=== PATIENT | female | born 1980 ===

== ENCOUNTER 2018-02-12 21:12 | Emergency (ER) | payer SELFPAY ==
[2018-02-12 21:12] VITALS: BMI 33.0
[2018-02-12 21:37] VITALS: RESP 18
[2018-02-12] MEDS ORDERED: Sodium Chloride 0.9% 1,000 ML IV STA (21:50)
[2018-02-12 22:25] LABS: BASO # 0.1 K/uL (0.0-0.2); BASO % 0.6 % (0.0-2.0); EOS # 0.1 K/uL (0.0-0.7); HEMOGLOBIN 13.6 g/dL (12.0-16.0); LYMPH # 3.5 K/uL (1.0-4.3); LYMPH % 29.8 % (20.0-40.0); MEAN CELL VOLUME 83.8 fl (81.0-99.0); MEAN CORPUSCULAR HGB CONC 33.3 g/dL (33.0-37.0); MEAN PLATELET VOLUME 8.1 fl (7.2-11.7); MONO # 0.9 K/uL (0.0-0.8); NEUT # 7.1 K/uL (1.8-7.0); NEUT % 60.6 % (50.0-75.0); RBC 4.86 Mil/uL (3.80-5.20); RED CELL DISTRIBUTION WIDTH 13.7 % (11.5-14.5); WHITE BLOOD COUNT 11.7 K/uL (4.8-10.8)
--- NOTE | 2018-02-12 22:26 | ED PDOC ---
HPI: Female Pain Chief Complaint (Provider): Vaginal Bleeding History Per: Patient History/Exam Limitations: no limitations Onset/Duration Of Symptoms: Days (x1 month), Worse Since (x2 days) Current Symptoms Are (Timing): Still Present Additional Complaint(s): 37 year old female presents to the ED for evaluation of vaginal bleeding for the past month, worsening the past two days when she developed associated 8/10 a bdominal and back pain. She states throughout the day today she had to change her pad/tampon every hour. Reports being on a course of progesterone for 17 days, completing it 2 days ago with no relief of symptoms. She notes she is also scheduled for a clovira injection on 02/15 at [facility], but the persistent symptoms prompted her visit. Otherwise, (-) other complaints. 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 <Rose Maddox - Last Filed: 02/13/18 00:44> <Olga Kraft - Last Filed: 02/15/18 09:35> Time Seen by Provider: 02/12/18 21:40 Chief Complaint (Nursing): Female Genitourinary Supervising Attending Note - Attestation: I have personally seen and examined this patient.: No I have reviewed all pertinent clinical information, including history, physical exam and plan: Yes <Olga Kraft - Last Filed: 02/15/18 09:35> Past Medical History Reviewed: Historical Data, Nursing Documentation, Vital Signs Vital Signs: Last Vital Signs Temp 98.8 F 02/12/18 21:32 Pulse 73 02/12/18 21:32 Resp 18 02/12/18 21:32 BP 145/92 H 02/12/18 21:32 Pulse Ox 100 02/12/18 21:32 - Medical History PMH: Hypothyroidism Other PMH: ovarian cysts; myomas - Surgical History Surgical History: No Surg Hx - Family History Family History: States: Unknown Family Hx - Social History Current smoker - smoking cessation education provided: No Alcohol: None Drugs: Denies - Immunization History Hx Tetanus Toxoid Vaccination: No Hx Influenza Vaccination: No Hx Pneumococcal Vaccination: No <Rose Maddox - Last Filed: 02/13/18 00:44> Vital Signs: Last Vital Signs Temp 98.7 F 02/13/18 01:00 Pulse 72 02/13/18 01:00 Resp 18 02/13/18 01:00 BP 124/73 02/13/18 01:00 Pulse Ox 98 02/13/18 01:00 <Olga Kraft - Last Filed: 02/15/18 09:35> - Home Medications Home Medications: Ambulatory Orders Medication Instructions Recorded RX: Levothyroxine [Synthroid] 1 tab PO DAILY 08/17/17 Cyclobenzaprine [Cyclobenzaprine 10 mg PO HS #8 tab 11/28/17 HCl] Ibuprofen [Motrin] 600 mg PO TID #30 tab 11/28/17 RX: Naproxen 375 mg PO BID PRN #20 tablet 02/11/18 - Allergies Allergies/Adverse Reactions: Allergies Allergy/AdvReac Type Severity Reaction Status Date / Time No Known Allergies Allergy Verified 02/12/18 21:37 Review of Systems ROS Statement: Except As Marked, All Systems Reviewed And Found Negative Gastrointestinal: Positive for: Abdominal Pain (12/09) Genitourinary Female: Positive for: Vaginal Bleeding Musculoskeletal: Positive for: Back Pain (12/09) <Rose Maddox Delon - Last Filed: 02/13/18 00:44> Physical Exam - Reviewed Nursing Documentation Reviewed: Yes Vital Signs Reviewed: Yes - Physical Exam Comments: GENERAL APPEARANCE: Patient is awake, alert, oriented x 3, in no acute distress. SKIN: Warm, dry; (-) cyanosis. EYES: (-) conjunctival pallor. ENMT: Mucous membranes moist. Airway patent: (-) stridor. Pharynx: (-) swelling, (-) erythema. NECK: (-) tenderness, (-) stiffness, (-) lymphadenopathy. CHEST AND RESPIRATORY: (-) wheezing; (-) rales, (-) rhonchi, (-) rub; breath sounds equal bilaterally. HEART AND CARDIOVASCULAR: (-) irregularity; (-) murmur, (-) gallop. ABDOMEN AND GI: Soft; (+) mild supra pubic and LLQ tenderness. BACK: (+) bilateral para lumbar tenderness. (-) vertebral tenderness, (-) bilateral CVA tenderness. EXTREMITIES: (-) deformity, (-) edema. NEURO AND PSYCH: Mental status as above; (-) focal findings. PELVIC: Normal external genitalia; (-) vesicles, (-) ulcers. (-)vaginal discharge; (+) active bleeding from cervix (+) large amount of blood in vaginal canal (-) pain on cervical motion. Uterus normal. No adnexal mass or tenderness. 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 <Rose Maddox - Last Filed: 02/13/18 00:44> - Laboratory Results Result Diagrams: 02/12/18 22:11 02/12/18 22:11 Urine POC: Negative Urine dip results: Positive for: Blood (large). Negative for: Leukocyte Esterase, Nitrate, Ketones, Glucose, Bilirubin, Protein - ECG O2 Sat by Pulse Oximetry: 100 (RA) Pulse Ox Interpretation: Normal <Rose Maddox - Last Filed: 02/13/18 00:44> - Laboratory Results Result Diagrams: 02/12/18 22:11 02/12/18 22:11 <Kraft,Olga Carmona - Last Filed: 02/15/18 09:35> Medical Decision Making Medical Decision Making: Initial Impression: vaginal bleeding Time: 2149 Initial Plan: --Transvaginal US --Urinalysis --Urine culture --Tylenol 975mg PO --Normal saline IV --CBC with differential --U-dip --U-preg --CMP --Type and screen 5 Udip reviewed: (+) blood. Upreg: negative 2240 Labs reviewed and grossly unremarkable. H&H stable. 0045 TV U/S: Posterior fundal submucosal fibroid. Abutment/displacement of the adjacent endometrium/endometrial cavity. Electronically signed on Feb 13, 2018 12:40:05 AM EDT by Lata Peralta M.D. Consult placed to OBGYN construction laborer, Dr Merino. [address] Merino, who states that patient requires no emergent intervention at this time and can follow up outpatient as planned with the clinic on 02/14/18. Patient supplied with U/S report to bring to appointment. Repeaet BP: __ On re-evaluation, patient offers no additional complaints. On exam, patient remains AAOx3, in no acute distress. Lungs clear to auscultation, cardiac RRR, abdomen soft, non-tender, repeat neuro exam shows no focal findings. VSS, stable for discharge. Lab/Diagnostic results d/w the patient in great detail. Diagnosis of uterine fibroid, vaginal bleeding d/w the patient. Based on history, exam and diagnostic results, plan will be for outpatient follow up as scheduled with OBGYN. Patient instructed to follow-up with pmd / referral provided / the clinic in 1- 2 days without fail. Return to the emergency room at any time for any new or worsening symptoms. Patient states she fully agrees with and understands dischar ge instructions. States that she agrees with the plan and disposition. Verbalized and repeated discharge instructions and plan. I have given the patient opportunity to ask any additional questions. -- Scribe Attestation: Documented by Dalia Rodarte, acting as a scribe for Rose Maddox PA-C. Provider Scribe Attestation: All medical record entries made by the Scribe were at my direction and perso gm dictated by me. I have reviewed the chart and agree that the record accurately reflects my personal performance of the history, physical exam, medical decision making, and the department course for this patient. I have also personally directed, reviewed, and agree with the discharge instructions and disposition. <Rose Maddox - Last Filed: 02/13/18 00:44> Disposition - Patient ED Disposition Is Patient to be Admitted: No Counseled Patient/Family Regarding: Studies Performed, Diagnosis, Need For Followup - Disposition Disposition: Routine/Home Disposition Time: 00:55 - POA Present On Arrival: None <Rose Maddox - Last Filed: 02/13/18 00:44> <Olga Kraft - Last Filed: 02/15/18 09:35> - Clinical Impression Clinical Impression: Vaginal bleeding, Uterine fibroid - Disposition [facility]errals: [facility]Outside[facility] [Outside] Condition: FAIR Additional Instructions: La atencin mdica de emergencia que recibi hoy se dirigi hacia los sntomas agudos de presentacin. Si le recetaron algn medicamento, llnelo y adminstrelo segn las indicaciones. Los sntomas pueden tardar varios fuentes en resolverse. Regrese al Departamento de Emergencias en cualquier momento si los sntomas empeoran, no mejoran o si surgen otros problemas. Comunquese con bagley mdico dentro de 2 fuentes para donta nueva evaluacin y robert un seguimiento o llame a franco de los mdicos / clnicas a los que marie sido referido y que figuran en el formulario de Informacin de visita al paciente que se incluye en bagley paquete de evelyne. Lleve todos los documentos que le entregaron al momento del evelyne junto con cualquier medicamento a bagley visita de seguimiento. Nuestro tratamiento no puede reemplazar la atencin mdica continua por parte de un proveedor de atencin primaria (PCP) fuera del departamento de emergencias. Instructions: Uterine Fibroids, Absent or Irregular Periods, Heavy Periods Forms: [employer] (Georgian) Print Language: LATVIAN Results - Lab Results Lab Results: 02/12/18 02/12/18 02/12/18 22:11 22:11 22:11 WBC RBC Hgb Hct MCV MCH MCHC RDW Plt Count MPV Neut % (Auto) Lymph % (Auto) Coal % (Auto) Eos % (Auto) Baso % (Auto) Neut # (Auto) Lymph # (Auto) Coal # (Auto) Eos # (Auto) Baso # (Auto) Sodium 140 Potassium 4.1 Chloride 111 H Carbon Dioxide 22 Anion Gap 11 BUN 10 Creatinine 0.6 L Est GFR ( Amer) > 60 Est GFR (Non-Af Amer) > 60 Random Glucose 96 Calcium 9.3 Total Bilirubin 0.6 AST 24 ALT 40 Alkaline Phosphatase 75 Total Protein 7.4 Albumin 3.9 Globulin 3.5 Albumin/Globulin Ratio 1.1 Urine Color Yellow Urine Clarity Cloudy Urine pH 6.0 Ur Specific Chamber[place] 1.015 Urine Protein 30 Urine Glucose (UA) Neg Urine Ketones Negative Urine Blood Large Urine Nitrate Negative Urine Bilirubin Negative Urine Urobilinogen 0.2-1.0 Ur Leukocyte Esterase Neg Urine RBC (Auto) 1601 H Urine Microscopic WBC < 1 Ur Squamous Epith Cells < 1 Blood Type O POSITIVE Antibody Screen Negative BBK History Checked No verified bt 02/12/18 22:11 WBC 11.7 H RBC 4.86 Hgb 13.6 Hct 40.8 MCV 83.8 MCH 28.0 MCHC 33.3 RDW 13.7 Plt Count 323 MPV 8.1 Neut % (Auto) 60.6 Lymph % (Auto) 29.8 Coal % (Auto) 8.0 Eos % (Auto) 1.0 Baso % (Auto) 0.6 Neut # (Auto) 7.1 H Lymph # (Auto) 3.5 Coal # (Auto) 0.9 H Eos # (Auto) 0.1 Baso # (Auto) 0.1 Sodium Potassium Chloride Carbon Dioxide Anion Gap BUN Creatinine Est GFR ( Amer) Est GFR (Non-Af Amer) Random Glucose Calcium Total Bilirubin AST ALT Alkaline Phosphatase Total Protein Albumin Globulin Albumin/Globulin Ratio Urine Color Urine Clarity Urine pH Ur Specific Chamber[place] Urine Protein Urine Glucose (UA) Urine Ketones Urine Blood Urine Nitrate Urine Bilirubin Urine Urobilinogen Ur Leukocyte Esterase Urine RBC (Auto) Urine Microscopic WBC Ur Squamous Epith Cells Blood Type Antibody Screen BBK History Checked <Rose Maddox - Last Filed: 02/13/18 00:44> - Lab Results Lab Results: 02/12/18 02/12/18 02/12/18 22:11 22:11 22:11 WBC RBC Hgb Hct MCV MCH MCHC RDW Plt Count MPV Neut % (Auto) Lymph % (Auto) Coal % (Auto) Eos % (Auto) Baso % (Auto) Neut # (Auto) Lymph # (Auto) Coal # (Auto) Eos # (Auto) Baso # (Auto) Sodium 140 Potassium 4.1 Chloride 111 H Carbon Dioxide 22 Anion Gap 11 BUN 10 Creatinine 0.6 L Est GFR ( Amer) > 60 Est GFR (Non-Af Amer) > 60 Random Glucose 96 Calcium 9.3 Total Bilirubin 0.6 AST 24 ALT 40 Alkaline Phosphatase 75 Total Protein 7.4 Albumin 3.9 Globulin 3.5 Albumin/Globulin Ratio 1.1 Urine Color Yellow Urine Clarity Cloudy Urine pH 6.0 Ur Specific Chamber[place] 1.015 Urine Protein 30 Urine Glucose (UA) Neg Urine Ketones Negative Urine Blood Large Urine Nitrate Negative Urine Bilirubin Negative Urine Urobilinogen 0.2-1.0 Ur Leukocyte Esterase Neg Urine RBC (Auto) 1601 H Urine Microscopic WBC < 1 Ur Squamous Epith Cells < 1 Blood Type O POSITIVE Antibody Screen Negative BBK History Checked No verified bt 02/12/18 22:11 WBC 11.7 H RBC 4.86 Hgb 13.6 Hct 40.8 MCV 83.8 MCH 28.0 MCHC 33.3 RDW 13.7 Plt Count 323 MPV 8.1 Neut % (Auto) 60.6 Lymph % (Auto) 29.8 Coal % (Auto) 8.0 Eos % (Auto) 1.0 Baso % (Auto) 0.6 Neut # (Auto) 7.1 H Lymph # (Auto) 3.5 Coal # (Auto) 0.9 H Eos # (Auto) 0.1 Baso # (Auto) 0.1 Sodium Potassium Chloride Carbon Dioxide Anion Gap BUN Creatinine Est GFR ( Amer) Est GFR (Non-Af Amer) Random Glucose Calcium Total Bilirubin AST ALT Alkaline Phosphatase Total Protein Albumin Globulin Albumin/Globulin Ratio Urine Color Urine Clarity Urine pH Ur Specific Chamber[place] Urine Protein Urine Glucose (UA) Urine Ketones Urine Blood Urine Nitrate Urine Bilirubin Urine Urobilinogen Ur Leukocyte Esterase Urine RBC (Auto) Urine Microscopic WBC Ur Squamous Epith Cells Blood Type Antibody Screen BBK History Checked <Olga Kraft - Last Filed: 02/15/18 09:35>
[2018-02-12 22:35] LABS: ALB/GLOB RATIO 1.1 (1.0-2.1); ALBUMIN 3.9 g/dL (3.5-5.0); ALT/SGPT 40 U/L (9-52); AST/SGOT 24 U/L (14-36); BLOOD UREA NITROGEN 10 mg/dl (7-17); CALCIUM 9.3 mg/dL (8.4-10.2); GFR NON-AFRICAN AMERICAN > 60
[2018-02-12 22:41] LABS: SQUAMOUS EPITHIAL < 1 /hpf (0-5); URINE BILIRUBIN NEGATIVE (NEGATIVE); URINE BLOOD LARGE (NEGATIVE); URINE CLARITY CLOUDY (Clear); URINE COLOR YELLOW (YELLOW); URINE GLUCOSE (UA) NEG (Normal); URINE LEUKOCYTE ESTERASE NEG Leu/uL (Negative); URINE PROTEIN 30 mg/dL (NEGATIVE); URINE UROBILINOGEN 0.2-1.0 mg/dL (0.2-1.0)
[2018-02-13 04:39] VITALS: BP 124/73; PULSE 72; TEMP 98.7; O2SAT 98
--- NOTE | 2018-02-13 11:42 | US ---
Date of service: 02/12/2018 HISTORY: Vaginal bleeding, history of myoma and ovarian cysts. LMP 01/09/2018. Irregular cycles. COMPARISON: None available. TECHNIQUE: Transvaginal only. Real -time technique with 2D, duplex and color Doppler FINDINGS: UTERUS: Measures 5.0 x 5.8 x 8.2 cm. Normal in size and appearance. Location of fibroid and size: Midline posterior submucosal 3.1 x 4.3 x 3.9 cm ENDOMETRIUM: Measures 11.8 mm in diameter. Unremarkable. CERVIX: No cervical abnormality identified. RIGHT OVARY: Measures 2.1 x 1.6 x 2.8 cm. No solid mass. Normal flow. Multiple subcentimeter follicles. LEFT OVARY: Measures 1.3 x 2 x 2.5 cm. No solid mass. Normal flow. Multiple subcentimeter follicles. FREE FLUID: No significant free fluid noted. OTHER FINDINGS: None. IMPRESSION: Solitary fibroid described above. Concordant results (preliminary interpretation) provided by [employer]. Procedure Completed: 00:00 Preliminary Report: Dictated and Authenticated: 00:40. Final Interpretation: 11:38.
== END 2018-02-13 01:10 | disposition home or self-care (01) ==
LOC: H.ER 21:12
DX: D25.0 Submucous leiomyoma of uterus (principal); E03.9 Hypothyroidism, unspecified
CPT/HCPCS: 76830; 80053; 81003; 81025; 85025; 86850; 86900; 87086; 99285; J7030

== ENCOUNTER 2018-05-05 21:26 | Emergency (ER) | payer SELFPAY ==
[2018-05-05 21:26] VITALS: BMI 33.0
[2018-05-05 22:15] VITALS: RESP 18; O2SAT 100
[2018-05-05] MEDS ORDERED: Sodium Chloride 0.9% 1,000 ML IV STA (22:27)
--- NOTE | 2018-05-05 22:45 | ED PDOC ---
HPI: Female Pain Time Seen by Provider: 05/05/18 22:14 Chief Complaint (Nursing): Female Genitourinary Chief Complaint (Provider): Vaginal Bleeding History Per: Patient History/Exam Limitations: no limitations Onset/Duration Of Symptoms: Days (x6 weeks) Current Symptoms Are (Timing): Still Present Additional Complaint(s): Patient is a 37 year old female with a history of uterine fibroids who presents for vaginal bleeding ongoing x6 weeks. Patient reports that on 04/13/18 a biopsy (colposcopy) was done by her OBGYN ( Dr Patricia) and that she started bleeding a week prior to that examination. Patient reports she has an upcoming appt with the OBGYN on 05/11/17 for the results. Patient reports that due to continued bleeding, which increased today, she called her OBGYN today who prescribed Provera 10mg tablets, which she has taken two doses of thus far. Patient reports her OBGYN directed her to the ED to get her hemoglobin level checked due to persistent bleeding. Patient denies abdominal pain, fever, urinary symptoms, cough, SOB, vaginal discharge, chest pain, N/V/D, dizziness, headache, syncope. Patient also notes she underwent an endometrial biopsy in 01/2018 as well. PMD: Harshad LMP: unknown due to persistent vaginal bleeding. Past Medical History Reviewed: Historical Data, Nursing Documentation, Vital Signs Vital Signs: Last Vital Signs Temp 98 F 05/05/18 22:12 Pulse 84 05/05/18 22:12 Resp 18 05/05/18 22:12 BP 109/70 05/05/18 22:12 Pulse Ox 100 05/05/18 22:12 - Medical History PMH: Diabetes, Hypothyroidism Other PMH: Uterine Fibroids - Surgical History Other surgeries: Endometrial/Cervical biopsy - Family History Family History: States: Unknown Family Hx - Living Arrangements Living Arrangements: With Family - Home Medications Home Medications: Ambulatory Orders Medication Instructions Recorded Levothyroxine [Synthroid] 1 tab PO DAILY 08/17/17 Ibuprofen [Motrin Tab] 600 mg PO TID PRN #20 tab 04/30/18 MedroxyPROGESTERone [Provera] 10 mg PO DAILY 04/30/18 - Allergies Allergies/Adverse Reactions: Allergies Allergy/AdvReac Type Severity Reaction Status Date / Time No Known Allergies Allergy Verified 05/05/18 22:12 Review of Systems ROS Statement: Except As Marked, All Systems Reviewed And Found Negative Genitourinary Female: Positive for: Vaginal Bleeding (>6 weeks) Physical Exam - Reviewed Nursing Documentation Reviewed: Yes Vital Signs Reviewed: Yes - Physical Exam Appears: Positive for: Well, Non-toxic, No Acute Distress Head Exam: Positive for: ATRAUMATIC, NORMOCEPHALIC Skin: Positive for: Normal Color, Warm, Dry Eye Exam: Positive for: Normal appearance ENT: Positive for: Other (Mucus membranes moist. Airway patent, (-) stridor.) Neck: Positive for: Painless ROM, Supple Cardiovascular/Chest: Positive for: Regular Rate, Rhythm Respiratory: Positive for: Normal Breath Sounds Gastrointestinal/Abdominal: Positive for: Soft. Negative for: Tenderness, Mass, Distended, Guarding Back: Negative for: L CVA Tenderness, R CVA Tenderness, Vertebral Tenderness Extremity: Positive for: Normal ROM. Negative for: Deformity Neurologic/Psych: Positive for: Alert, Oriented (x3), Gait (steady in ED), Other (Speech: clear.). Negative for: Aphasia, Facial Droop - Laboratory Results Urine POC: Negative - ECG O2 Sat by Pulse Oximetry: 100 (RA) Pulse Ox Interpretation: Normal Medical Decision Making Medical Decision Makin Initial Impression: vaginal bleeding, likely secondary to uterine fibroids Plan: -IV -IVF -CBC -CMP -Type and Screen -Transvaginal U/S -U/A -Upreg -Toradol 30mg IVP 2310 Patient in U/S. 0000 Case endorsed to Luisa Bui PA-C pending U/S results, lab results, re- evaluation/further disposition. Disposition - Clinical Impression Clinical Impression: Vaginal bleeding - Patient ED Disposition Is Patient to be Admitted: Transfer of Care (Case endorsed to Luisa Bui PA-C pending U/S results, lab results, re-evaluation/further disposition.) - Disposition Disposition: Transfer of Care (Case endorsed to Luisa Bui PA-C pending U/S results, lab results, re-evaluation/further disposition.) Disposition Time: 00:00 Condition: FAIR - POA Present On Arrival: None
[2018-05-05 23:52] LABS: SQUAMOUS EPITHIAL 2 /hpf (0-5); URINE BILIRUBIN NEGATIVE (NEGATIVE); URINE BLOOD MODERATE (NEGATIVE); URINE CLARITY CLEAR (Clear); URINE COLOR YELLOW (YELLOW); URINE GLUCOSE (UA) NEG (NEGATIVE); URINE LEUKOCYTE ESTERASE NEG Leu/uL (Negative); URINE PROTEIN NEGATIVE (NEGATIVE); URINE UROBILINOGEN 0.2-1.0 mg/dL (0.2-1.0)
[2018-05-05 23:53] LABS: BASO % 0.4 % (0.0-2.0); EOS # 0.2 K/uL (0.0-0.7); EOS % 1.9 % (0.0-4.0); HEMOGLOBIN 10.3 g/dL (12.0-16.0); LYMPH # 3.6 K/uL (1.0-4.3); LYMPH % 34.1 % (20.0-40.0); MEAN CELL VOLUME 74.4 fl (81.0-99.0); MEAN CORPUSCULAR HEMOGLOBIN 24.1 pg (27.0-31.0); MEAN CORPUSCULAR HGB CONC 32.4 g/dL (33.0-37.0); MONO % 9.7 % (0.0-10.0); NEUT # 5.6 K/uL (1.8-7.0); NEUT % 53.9 % (50.0-75.0); NRBC % 0.1 % (0.0-0.0); RBC 4.27 Mil/uL (3.80-5.20); RED CELL DISTRIBUTION WIDTH 15.1 % (11.5-14.5); WHITE BLOOD COUNT 10.5 K/uL (4.8-10.8)
[2018-05-06] LABS: ALB/GLOB RATIO 1.3 (1.0-2.1); ALT/SGPT 23 U/L (9-52); AST/SGOT 21 U/L (14-36); BLOOD UREA NITROGEN 13 mg/dl (7-17); CALCIUM 9.1 mg/dL (8.4-10.2); GFR NON-AFRICAN AMERICAN > 60
--- NOTE | 2018-05-06 00:30 | ED PDOC ---
- Laboratory Results Result Diagrams: 05/05/18 23:00 05/05/18 23:00 Urine POC: Negative - ECG O2 Sat by Pulse Oximetry: 100 (RA) - Progress ED Course And Treament: Case endorsed to va underwriter from [facility] pending labs, u/s Date of service: 05/05/2018 History Vaginal bleeding. History of fibroid. Comparison None available. Technique Pelvic transvaginal ultrasound. Findings Uterus Measures 9.1 x 4.6 x 5.2 cm. Normal in size and appearance. Mid uterine fibroid measuring 4.2 x 3.1 x 3.4 cm. Endometrium Measures 0.6 mm in diameter. Unremarkable. Cervix No cervical abnormality identified. Right ovary Measures 1.4 x 1.2 x 1.8 cm. No solid mass. Normal flow. Left ovary Measures 2.7 x 1.5 x 2.6 cm. No solid mass. Normal flow. Free fluid No significant free fluid noted. Other Findings None. Impression Mid uterine fibroid. Otherwise negative Patient educated on findings, discharged with instructions to follow up with [facility] as scheduled Advised OTC iron supplement Return precautions given Disposition - Clinical Impression Clinical Impression: Vaginal bleeding, Uterine fibroid - POA Present On Arrival: None - Disposition Disposition: Routine/Home Disposition Time: 00:30 Condition: STABLE Instructions: Uterine Fibroids Forms: [employer] (Ukrainian) Print Language: SINHALA
[2018-05-06 05:13] VITALS: BP 116/72; PULSE 88; TEMP 98.3
--- NOTE | 2018-05-06 10:01 | US ---
Date of service: 05/05/2018 PROCEDURE: HISTORY: vag bleeding, hx of fibroids COMPARISON: TECHNIQUE: FINDINGS: Enlarged leiomyomatous uterus with a mid fundal myoma measuring 4.2 centimeters. 6 millimeter endometrium. Ovaries are within normal limits. IMPRESSION: Fundal leiomyoma.
== END 2018-05-06 00:50 | disposition home or self-care (01) ==
LOC: H.ER 21:26
DX: N93.9 Abnormal uterine and vaginal bleeding, unspecified (principal); D25.9 Leiomyoma of uterus, unspecified; E11.9 Type 2 diabetes mellitus without complications; E03.9 Hypothyroidism, unspecified
CPT/HCPCS: 76830; 80053; 81003; 81025; 85025; 86850; 86900; 96361; 96374; 99284; J1885; J7030

== ENCOUNTER 2018-05-24 11:51 | Emergency (ER) | payer SELFPAY ==
[2018-05-24 12:04] VITALS: BMI 27.6
[2018-05-24 12:05] VITALS: O2SAT 99
[2018-05-24] MEDS ORDERED: Sodium Chloride 0.9% 1,000 ML IV SCH (13:45)
--- NOTE | 2018-05-24 13:52 | ED PDOC ---
HPI: Female Pain History Per: Patient Onset/Duration Of Symptoms: Days Current Symptoms Are (Timing): Still Present Severity: Mild Additional Complaint(s): Pt. with a history of uterine fibroids and DUB reports persistent daily mild to moderate vaginal bleeding for almost one month. Pt. saw her hand worker Dr. Bryan 05/05/18 and was started on provera (10mg tid) which shes been taking but bleeding continues. Pt. denies lightheadedness, dizziness, cp, sob. <Masha Lowe - Last Filed: 05/24/18 13:50> <Olga Kraft - Last Filed: 05/24/18 15:17> Time Seen by Provider: 05/24/18 12:19 Chief Complaint (Nursing): Female Genitourinary Past Medical History Reviewed: Historical Data, Nursing Documentation, Vital Signs Vital Signs: Last Vital Signs Temp 98.4 F 05/24/18 12:04 Pulse 73 05/24/18 12:04 Resp 20 05/24/18 12:04 BP 107/65 05/24/18 12:04 Pulse Ox 99 05/24/18 12:04 - Medical History PMH: No Chronic Diseases, Diabetes, Hypothyroidism - Surgical History Surgical History: No Surg Hx - Family History Family History: States: Unknown Family Hx - Immunization History Hx Tetanus Toxoid Vaccination: No Hx Influenza Vaccination: No Hx Pneumococcal Vaccination: No <Masha Lowe - Last Filed: 05/24/18 13:50> Vital Signs: Last Vital Signs Temp 98.4 F 05/24/18 12:04 Pulse 73 05/24/18 12:04 Resp 20 05/24/18 12:04 BP 107/65 05/24/18 12:04 Pulse Ox 99 05/24/18 13:53 <Olga Kraft - Last Filed: 05/24/18 15:17> - Home Medications Home Medications: Ambulatory Orders Medication Instructions Recorded Levothyroxine [Synthroid] 1 tab PO DAILY 08/17/17 Ibuprofen [Motrin Tab] 600 mg PO TID PRN #20 tab 04/30/18 MedroxyPROGESTERone [Provera] 10 mg PO DAILY 04/30/18 Ferrous Sulfate [Feosol] 325 mg PO TID #21 tab 05/24/18 - Allergies Allergies/Adverse Reactions: Allergies Allergy/AdvReac Type Severity Reaction Status Date / Time No Known Allergies Allergy Verified 05/24/18 12:34 Physical Exam - Physical Exam Appears: Positive for: Well, Non-toxic Head Exam: Positive for: ATRAUMATIC Skin: Positive for: Normal Color, Dry Eye Exam: Positive for: Normal appearance Cardiovascular/Chest: Positive for: Regular Rate, Rhythm. Negative for: Tachycardia Respiratory: Positive for: Normal Breath Sounds Gastrointestinal/Abdominal: Positive for: Normal Exam, Soft. Negative for: Tenderness Pelvic Exam: Positive for: No Cerv. Motion Tender, No Masses, Active Bleeding (Mild bleeding from closed cervical os. ) <Masha Lowe - Last Filed: 05/24/18 13:50> - ECG O2 Sat by Pulse Oximetry: 99 <Masha Lowe - Last Filed: 05/24/18 13:50> - Laboratory Results Result Diagrams: 05/24/18 14:29 05/24/18 14:29 <Olga Kraft - Last Filed: 05/24/18 15:17> Medical Decision Making Medical Decision Makin:[address] Bryan, recommends increasing Provera to tid again, follow-up in office on Tuesday (05/29/18) @ 10 AM. Discharge instructions explained to patient using bed control specialist, expresses verbal understanding. <Olga Kraft - Last Filed: 05/24/18 15:17> Disposition <Masha Lowe - Last Filed: 05/24/18 13:50> - Disposition Disposition: Routine/Home Disposition Time: 15:14 <Olga Kraft - Last Filed: 05/24/18 15:17> - Clinical Impression Clinical Impression: Excessive vaginal bleeding - Disposition Referrals: Sim Perdomo MD [Staff Provider] - Condition: STABLE Additional Instructions: MANINDER PROVERA FADY VECES A JAMILAH. Prescriptions: Ferrous Sulfate [Feosol] 325 mg PO TID #21 tab Instructions: Heavy Periods Forms: [employer] (Indonesian) Print Language: ICELANDIC
--- NOTE | 2018-05-24 14:24 | ED PDOC ---
- ECG O2 Sat by Pulse Oximetry: 99 (RA) Pulse Ox Interpretation: Normal Medical Decision Making Medical Decision Making: Time: 14:15 Patient was signed out to me by JALEN Lowe pending labs and reevaluation. Scribe Attestation: Documented by Farideh Gomez, acting as a scribe for Olga Kraft MD. Provider Scribe Attestation: All medical record entries made by the Scribe were at my direction and personally dictated by me. I have reviewed the chart and agree that the record accurately reflects my personal performance of the history, physical exam, medical decision making, and the department course for this patient. I have also personally directed, reviewed, and agree with the discharge instructions and disposition. Disposition - Disposition Forms: [employer] (Dutch)
[2018-05-24 14:42] LABS: BASO % 0.4 % (0.0-2.0); EOS # 0.1 K/uL (0.0-0.7); EOS % 0.6 % (0.0-4.0); HEMOGLOBIN 8.9 g/dL (12.0-16.0); LYMPH # 2.6 K/uL (1.0-4.3); LYMPH % 29.2 % (20.0-40.0); MEAN CELL VOLUME 74.2 fl (81.0-99.0); MEAN CORPUSCULAR HEMOGLOBIN 23.1 pg (27.0-31.0); MEAN CORPUSCULAR HGB CONC 31.1 g/dL (33.0-37.0); MEAN PLATELET VOLUME 7.7 fl (7.2-11.7); MONO # 0.7 K/uL (0.0-0.8); MONO % 7.5 % (0.0-10.0); NEUT # 5.5 K/uL (1.8-7.0); NEUT % 62.3 % (50.0-75.0); NRBC % 0.1 % (0.0-0.0); RBC 3.86 Mil/uL (3.80-5.20); RED CELL DISTRIBUTION WIDTH 15.6 % (11.5-14.5); WHITE BLOOD COUNT 8.9 K/uL (4.8-10.8)
[2018-05-24 15:01] LABS: ALB/GLOB RATIO 1.2 (1.0-2.1); ALBUMIN 3.9 g/dL (3.5-5.0); ALT/SGPT 31 U/L (9-52); AST/SGOT 42 U/L (14-36); BLOOD UREA NITROGEN 10 mg/dl (7-17); CALCIUM 9.3 mg/dL (8.4-10.2); GFR NON-AFRICAN AMERICAN > 60
[2018-05-24 15:16] VITALS: BP 112/65; PULSE 81; RESP 17; TEMP 98.8
== END 2018-05-24 15:43 | disposition home or self-care (01) ==
LOC: H.ER 11:51
DX: N93.9 Abnormal uterine and vaginal bleeding, unspecified (principal); D25.9 Leiomyoma of uterus, unspecified
CPT/HCPCS: 80053; 81025; 85025; 96360; 99284; J7030

== ENCOUNTER 2018-06-09 21:25 | Emergency (ER) | payer SELFPAY ==
[2018-06-09 21:25] VITALS: BMI 27.6
[2018-06-09 22:33] VITALS: BP 130/78; PULSE 78; RESP 16; TEMP 98.9; O2SAT 99
--- NOTE | 2018-06-09 22:55 | ED PDOC ---
HPI: CCC, URI, Sore Throat Time Seen by Provider: 06/09/18 22:53 Chief Complaint (Nursing): ENT Problem Chief Complaint (Provider): tongue pain History Per: Patient (37 y/o female here for evaluation of tongue discomfort. Notes 'wart like' lesions on tongue and [place] Denies any fevers/chills.) Past Medical History Reviewed: Historical Data, Nursing Documentation, Vital Signs Vital Signs: Last Vital Signs Temp 98.9 F 06/09/18 22:32 Pulse 78 06/09/18 22:32 Resp 16 06/09/18 22:32 BP 130/78 06/09/18 22:32 Pulse Ox 99 06/09/18 22:32 - Medical History PMH: Diabetes, Hypothyroidism - Family History Family History: States: Unknown Family Hx - Immunization History Hx Tetanus Toxoid Vaccination: No Hx Influenza Vaccination: No Hx Pneumococcal Vaccination: No - Home Medications Home Medications: Ambulatory Orders Medication Instructions Recorded Levothyroxine [Synthroid] 1 tab PO DAILY 08/17/17 Ibuprofen [Motrin Tab] 600 mg PO TID PRN #20 tab 04/30/18 MedroxyPROGESTERone [Provera] 10 mg PO DAILY 04/30/18 Ferrous Sulfate [Feosol] 325 mg PO TID #21 tab 05/24/18 Ibuprofen [Motrin] 600 mg PO Q8 PRN #21 tab 06/09/18 Mag&Al/Simet/Diphen/Lido [First 5 ml BU TID PRN #1 kit 06/09/18 Magic Mouthwash] - Allergies Allergies/Adverse Reactions: Allergies Allergy/AdvReac Type Severity Reaction Status Date / Time No Known Allergies Allergy Verified 05/24/18 12:34 Review of Systems ROS Statement: Except As Marked, All Systems Reviewed And Found Negative ENT: Positive for: Throat Pain Physical Exam - Reviewed Nursing Documentation Reviewed: Yes Vital Signs Reviewed: Yes - Physical Exam Appears: Positive for: Well, Non-toxic, No Acute Distress Head Exam: Positive for: ATRAUMATIC, NORMAL INSPECTION, NORMOCEPHALIC Skin: Positive for: Normal Color, Warm, DRY Eye Exam: Positive for: EOMI, Normal appearance, PERRL ENT: Positive for: Normal ENT Inspection (no obvious abnormality noted.) Neck: Positive for: Normal, Painless ROM Cardiovascular/Chest: Positive for: Regular Rate, Rhythm Respiratory: Positive for: CNT, Normal Breath Sounds Gastrointestinal/Abdominal: Positive for: Normal Exam, Soft Back: Positive for: Normal Inspection Extremity: Positive for: Normal ROM Neurologic/Psych: Positive for: Alert, Oriented - ECG O2 Sat by Pulse Oximetry: 99 Disposition - Clinical Impression Clinical Impression: Tongue abnormality - Patient ED Disposition Is Patient to be Admitted: No - Disposition Referrals: Nadir Phillips MD [Staff Provider] - Disposition: Routine/Home Disposition Time: 22:55 Condition: FAIR Prescriptions: Ibuprofen [Motrin] 600 mg PO Q8 PRN #21 tab PRN Reason: Pain, Moderate (4-7) Mag&Al/Simet/Diphen/Lido [First Magic Mouthwash] 5 ml BU TID PRN #1 kit PRN Reason: Pain, Mild (1-3) Instructions: Sore Throat in Adults Print Language: BAHAMIAN
== END 2018-06-09 23:09 | disposition home or self-care (01) ==
LOC: H.ER 21:25
DX: K14.9 Disease of tongue, unspecified (principal); E03.9 Hypothyroidism, unspecified; E11.9 Type 2 diabetes mellitus without complications

== ENCOUNTER → 2018-06-20 | Day surgery (SDC) | payer SELFPAY ==
[2018-06-19 10:15] VITALS: BMI 34.2
[~2018-06-20] MED LIST: Dexamethasone 4 mg/1 ml ONE; Ferric Subsulfate Sol(60 mL) ONE; HYDROmorphone 0.5 mg/0.5 ml ISec IVP PRN; Lactated Ringer's 1,000 ML IV ONE; Midazolam 2 MG/2 ML VIAL ONE; Propofol 10 mg/ml Inj (20 ML) ONE; Silver Nitrate Topical - Stick ONE; Silver Nitrate Topical - Stick TOP ONE; Strong Iodine Topical Sol. 5%-10% ONE
[2018-06-20 07:03] LABS: BASO % 0.5 % (0.0-2.0); EOS # 0.1 K/uL (0.0-0.7); EOS % 1.2 % (0.0-4.0); HEMOGLOBIN 11.9 g/dL (12.0-16.0); LYMPH # 2.7 K/uL (1.0-4.3); LYMPH % 31.7 % (20.0-40.0); MEAN CELL VOLUME 78.2 fl (81.0-99.0); MEAN CORPUSCULAR HEMOGLOBIN 24.5 pg (27.0-31.0); MEAN CORPUSCULAR HGB CONC 31.3 g/dL (33.0-37.0); MEAN PLATELET VOLUME 8.1 fl (7.2-11.7); MONO # 0.8 K/uL (0.0-0.8); MONO % 9.3 % (0.0-10.0); NEUT % 57.3 % (50.0-75.0); NRBC % 0.1 % (0.0-0.0); RBC 4.86 Mil/uL (3.80-5.20); WHITE BLOOD COUNT 8.6 K/uL (4.8-10.8)
[2018-06-20 07:10] LABS: BLOOD UREA NITROGEN 12 mg/dl (7-17); CALCIUM 9.5 mg/dL (8.4-10.2); GFR NON-AFRICAN AMERICAN > 60
[2018-06-20 12:41] VITALS: RESP 18
[2018-06-20 14:02] VITALS: BP 109/57; PULSE 89; TEMP 97.9; O2SAT 98
--- NOTE | 2018-06-23 19:07 | OP ---
PROCEDURE DATE: 06/20/2018 PREOPERATIVE DIAGNOSIS: Heavy menstrual bleeding with submucosal uterine fibroid and anemia. POSTOPERATIVE DIAGNOSIS: Heavy menstrual bleeding with submucosal uterine fibroid and anemia. PROCEDURE: Hysteroscopy with D and C and partial submucosal myomectomy. SURGEON: Sim Perdomo MD ANESTHESIA: General. FLUID DEFICIT: 500 mL. ESTIMATED BLOOD LOSS: 15 mL. FINDINGS: The uterus was anteverted and mildly enlarged. Upon hysteroscopic examination, an approximately 4.5 cm submucosal fibroid was noted and bleeding was noted during the procedure. PROCEDURE: The patient was taken to the operating room where she was given general anesthesia and prepped and draped in a normal sterile fashion after bimanual exam and the findings noted above. The cervix was then exposed with a weighted speculum and the anterior lip of the cervix was grasped with a single-toothed tenaculum. The uterus was sounded to approximately 9 cm. The endocervical canal was then progressively dilated to allow for the hysteroscope. The hysteroscope was then introduced into the uterine cavity using sterile saline as the distending media and the cavity was visualized noting the 4.5 cm submucosal fibroid. The MyoSure device was then used for attempted removal of the submucosal fibroid. Only a part of the fibroid was able to be resected as the patient started to have increased bleeding which distorted the visual field. As visualization of the fibroid was diminished, this portion of the procedure was aborted and the hysteroscope was removed. A D and C was then performed and the specimen was handed off the field to pathology. Silver nitrate was used on the cervix and at the area of the tenaculum for active removal to ensure good hemostasis. All instruments were removed and no further bleeding was seen. The patient was repositioned, she tolerated procedure well. Several pictures were taken of the endometrial cavity with the hysteroscope prior to removal. She was awakened from anesthesia and transported to the recovery room in satisfactory postop condition. She was informed to follow up in the clinic in one week to discuss pathology and further management and she was discharged home on Motrin for pain and informed to continue her iron. Sim Perdomo MD SUZY
== END | disposition home or self-care (01) ==
LOC: H.OPSURG 06:01
PROVIDERS: ATTEND Obstetrics & Gynecology
DX: D25.0 Submucous leiomyoma of uterus (principal); E03.9 Hypothyroidism, unspecified; D25.2 Subserosal leiomyoma of uterus; D64.9 Anemia, unspecified; N92.0 Excessive and frequent menstruation with regular cycle
CPT/HCPCS: 36415; 58558; 80048; 85025; 88305; J1100; J1885; J2001; J2250; J2405; J3010; J7030; J7120

== ENCOUNTER 2018-07-09 09:10 | Emergency (ER) | payer SELFPAY ==
[2018-07-09 09:16] VITALS: BMI 30.9
[2018-07-09] MEDS ORDERED: Sodium Chloride 0.9% 1,000 ML IV STA (09:40)
--- NOTE | 2018-07-09 09:43 | ED PDOC ---
HPI: General Adult Time Seen by Provider: 07/09/18 09:40 Chief Complaint (Nursing): Female Genitourinary Chief Complaint (Provider): VAGINAL BLEEDING History Per: Patient (37 Y/O FEMALE RECENT PARTICAL REMOVAL OF UTERINE FIBROMA 06/20/2018 BY RICKY MOORE HERE FOR EVALUATION OF EXCESSIVE VAGINAL BLEEDING ONGOING SINCE. PATIENT WAS REFERRED TO [facility] AND HAS US SCHEDULED IN 2 WEEKS FOR EVALUATION. HAS F/U APPT SCHEDULED NEXT TUESDAY. PATIENT IS CURRENTLY ON IRON, BUT FEELS SHE HAS BLED HEAVILY AND FEELS VERY WEAK TODAY.) Past Medical History Reviewed: Historical Data, Nursing Documentation, Vital Signs Vital Signs: Last Vital Signs Temp 98.1 F 07/09/18 09:14 Pulse 82 07/09/18 09:14 Resp 16 07/09/18 09:14 BP 107/65 07/09/18 09:14 Pulse Ox 98 07/09/18 09:14 - Medical History PMH: Anemia (iron), Diabetes, Gastritis, Hypothyroidism Denies: Chronic Kidney Disease - Family History Family History: States: Unknown Family Hx - Immunization History Hx Tetanus Toxoid Vaccination: No Hx Influenza Vaccination: No Hx Pneumococcal Vaccination: No - Home Medications Home Medications: Ambulatory Orders Medication Instructions Recorded Levothyroxine [Synthroid] 1 tab PO DAILY 08/17/17 Ibuprofen [Motrin Tab] 600 mg PO Q6 06/20/18 Naproxen 375 mg PO Q8 PRN #21 tablet 07/09/18 - Allergies Allergies/Adverse Reactions: Allergies Allergy/AdvReac Type Severity Reaction Status Date / Time No Known Allergies Allergy Verified 06/19/18 10:15 Review of Systems ROS Statement: Except As Marked, All Systems Reviewed And Found Negative Gastrointestinal: Positive for: Abdominal Pain Genitourinary Female: Positive for: Vaginal Bleeding Physical Exam - Reviewed Nursing Documentation Reviewed: Yes Vital Signs Reviewed: Yes - Physical Exam Appears: Positive for: Well, Non-toxic, No Acute Distress Head Exam: Positive for: ATRAUMATIC, NORMAL INSPECTION, NORMOCEPHALIC Skin: Positive for: Normal Color, Warm, DRY Eye Exam: Positive for: EOMI, Normal appearance, PERRL ENT: Positive for: Normal ENT Inspection Neck: Positive for: Normal, Painless ROM Cardiovascular/Chest: Positive for: Regular Rate, Rhythm Respiratory: Positive for: CNT, Normal Breath Sounds Gastrointestinal/Abdominal: Positive for: Normal Exam, Soft Pelvic Exam: Positive for: Active Bleeding (bloodclots noted in vaginal canal.) Back: Positive for: Normal Inspection Extremity: Positive for: Normal ROM Neurological/Psych: Positive for: Awake, Alert, Normal Tone - Laboratory Results Result Diagrams: 07/09/18 10:00 Urine POC: Negative - ECG O2 Sat by Pulse Oximetry: 98 - Progress ED Course And Treament: KETORALOC 15 MG IV X 1 DOSE NS 1 LITER 500 ML PER HOUR Disposition - Clinical Impression Clinical Impression: Fibroma, Dysfunctional uterine bleeding - Patient ED Disposition Is Patient to be Admitted: No - Disposition Disposition: Routine/Home Disposition Time: 12:36 Condition: FAIR Prescriptions: Naproxen 375 mg PO Q8 PRN #21 tablet PRN Reason: Pain, Moderate (4-7) Instructions: Heavy Periods Print Language: SWEDISH
[2018-07-09 10:30] LABS: BASO % 0.4 % (0.0-2.0); EOS # 0.1 K/uL (0.0-0.7); EOS % 1.7 % (0.0-4.0); HEMOGLOBIN 10.1 g/dL (12.0-16.0); LYMPH # 2.6 K/uL (1.0-4.3); LYMPH % 34.1 % (20.0-40.0); MEAN CORPUSCULAR HEMOGLOBIN 25.5 pg (27.0-31.0); MEAN CORPUSCULAR HGB CONC 32.7 g/dL (33.0-37.0); MEAN PLATELET VOLUME 7.8 fl (7.2-11.7); MONO # 0.7 K/uL (0.0-0.8); NEUT # 4.2 K/uL (1.8-7.0); NEUT % 54.8 % (50.0-75.0); NRBC % 0.1 % (0.0-0.0); RBC 3.97 Mil/uL (3.80-5.20); RED CELL DISTRIBUTION WIDTH 21.8 % (11.5-14.5); WHITE BLOOD COUNT 7.6 K/uL (4.8-10.8)
[2018-07-09 10:36] LABS: URINE BACTERIA OCC (<OCC); URINE BILIRUBIN NEGATIVE (NEGATIVE); URINE BLOOD MODERATE (NEGATIVE); URINE CLARITY TURBID (Clear); URINE COLOR RED (YELLOW); URINE GLUCOSE (UA) NEG (NEGATIVE); URINE LEUKOCYTE ESTERASE NEG Leu/uL (Negative); URINE PROTEIN 100 mg/dL (NEGATIVE); URINE UROBILINOGEN 0.2-1.0 mg/dL (0.2-1.0)
[2018-07-09 10:43] LABS: PROTHROMBIN TIME 11.8 Seconds (9.8-13.1)
[2018-07-09 10:46] LABS: PARTIAL THROMBOPLASTIN TIME 30.5 Seconds (25.6-37.1)
[2018-07-09 11:45] VITALS: RESP 18
--- NOTE | 2018-07-09 12:25 | US ---
Date of service: 07/09/2018 PROCEDURE: HISTORY: MODERATE PAIN LOWER ABD. H/O FIBROMA COMPARISON: Pelvic ultrasound dated 06/05/2018 TECHNIQUE: FINDINGS: The uterus measures 8.7 x 5.3 x 5.7 centimeters. The endometrium measures 6 millimeters. There is a fundal myoma measuring 4.3 centimeters. The ovaries have a normal sonographic appearance. There is no free fluid the pelvis. IMPRESSION: Leiomyomatous uterus with a 4.3 centimeter posterior corporal myoma exerting mass-effect upon the endometrium. No significant oval change.
[2018-07-09 13:52] VITALS: BP 119/59; PULSE 72; TEMP 98.5; O2SAT 99
== END 2018-07-09 13:40 | disposition home or self-care (01) ==
LOC: H.ER 09:10
DX: N93.8 Other specified abnormal uterine and vaginal bleeding (principal); D25.9 Leiomyoma of uterus, unspecified; E03.9 Hypothyroidism, unspecified; E11.9 Type 2 diabetes mellitus without complications
CPT/HCPCS: 76830; 81003; 81025; 82948; 84702; 85025; 85610; 85730; 86850; 86900; 96374; 99285; J1885; J7030

== ENCOUNTER 2018-08-19 07:54 | Emergency (ER) | payer SELFPAY ==
[2018-08-19 07:59] VITALS: RESP 16
[2018-08-19 08:00] VITALS: BMI 34.9
[2018-08-19 09:24] LABS: BASO # 0.1 K/uL (0.0-0.2); BASO % 1.1 % (0.0-2.0); EOS # 0.1 K/uL (0.0-0.7); EOS % 1.3 % (0.0-4.0); HEMOGLOBIN 9.9 g/dL (12.0-16.0); LYMPH # 2.7 K/uL (1.0-4.3); LYMPH % 34.4 % (20.0-40.0); MEAN CELL VOLUME 72.1 fl (81.0-99.0); MEAN CORPUSCULAR HEMOGLOBIN 22.7 pg (27.0-31.0); MEAN CORPUSCULAR HGB CONC 31.5 g/dL (33.0-37.0); MEAN PLATELET VOLUME 7.6 fl (7.2-11.7); MONO # 0.9 K/uL (0.0-0.8); MONO % 11.2 % (0.0-10.0); NEUT # 4.1 K/uL (1.8-7.0); NRBC % 0.1 % (0.0-0.0); RBC 4.34 Mil/uL (3.80-5.20); RED CELL DISTRIBUTION WIDTH 19.8 % (11.5-14.5); WHITE BLOOD COUNT 7.9 K/uL (4.8-10.8)
--- NOTE | 2018-08-19 09:35 | ED PDOC ---
Lower Extremity Pain/Injury <Lois Castillo - Last Filed: 08/19/18 15:07> Additional Complaint(s): [id number] 37 y/o F s/p hysteroscopy/D & C (06/22/2018) with partial removal of fibroid & hx of venous insufficiency of left leg is presenting with complaints of b/l dull leg pain L>R x 3 days. She reports pain initially was intermittent, and began while she was walking, alleviated with rest. She reports sob & chest pain with exertion x 3 days as well as resolution of pain after sitting. She endorses similar symptoms in 2013 while in [place]. She states at that time, she was treated for DVT. Of note pt is . She denied any trauma to leg, leg swelling, leg redness, recent travel, fever, chills or hemoptysis. RECEP: Dr. 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 ROS: all points reviewed and are negative unless otherwise mentioned in HPI <Aubree Shahid - Last Filed: 08/19/18 15:44> <Ayaan De León III - Last Filed: 08/22/18 10:12> Time Seen by Provider: 08/19/18 08:15 Chief Complaint (Nursing): Lower Extremity Problem/Injury Supervising Attending Note - Supervising Attending Note The Documented history was done by the: Physician Video Network Engineer The documented physical exam was done by the: Physician Video Network Engineer The documented procedures were done by the: Physician Video Network Engineer - Attestation: I have personally seen and examined this patient.: Yes I have fully participated in the care of the patient.: Yes I have reviewed all pertinent clinical information, including history, physical exam and plan: Yes <Lois Castillo - Last Filed: 08/19/18 15:07> Past Medical History Vital Signs: Last Vital Signs Temp 99.5 F 08/19/18 13:30 Pulse 68 08/19/18 13:30 Resp 16 08/19/18 13:30 BP 111/61 08/19/18 13:30 Pulse Ox 100 08/19/18 13:30 <CastilloLois - Last Filed: 08/19/18 15:07> Vital Signs: Last Vital Signs Temp 99.1 F 08/19/18 07:58 Pulse 73 08/19/18 07:58 Resp 16 08/19/18 07:58 BP 106/62 08/19/18 07:58 Pulse Ox 99 08/19/18 07:58 - Medical History PMH: Anemia (iron), Diabetes, Gastritis, Hypothyroidism Denies: Chronic Kidney Disease - Family History Family History: States: Unknown Family Hx - Immunization History Hx Tetanus Toxoid Vaccination: No Hx Influenza Vaccination: No Hx Pneumococcal Vaccination: No <Aubree Shahid - Last Filed: 08/19/18 15:44> Vital Signs: Last Vital Signs Temp 98.9 F 08/19/18 16:37 Pulse 72 08/19/18 16:37 Resp 16 08/19/18 16:37 BP 110/62 08/19/18 16:37 Pulse Ox 100 08/22/18 08:59 <Ayaan De León III - Last Filed: 08/22/18 10:12> - Home Medications Home Medications: Ambulatory Orders Medication Instructions Recorded Levothyroxine [Synthroid] 1 tab PO DAILY 08/17/17 Ibuprofen [Motrin Tab] 600 mg PO Q6 06/20/18 Naproxen 375 mg PO Q8 PRN #21 tablet 07/09/18 - Allergies Allergies/Adverse Reactions: Allergies Allergy/AdvReac Type Severity Reaction Status Date / Time No Known Allergies Allergy Verified 06/19/18 10:15 Physical Exam - Physical Exam Appears: Positive for: No Acute Distress Head Exam: Positive for: ATRAUMATIC, NORMAL INSPECTION Skin: Positive for: Warm. Negative for: Rash Eye Exam: Positive for: PERRL ENT: Positive for: Normal ENT Inspection. Negative for: Pharyngeal Erythema, Tonsillar Exudate Cardiovascular/Chest: Positive for: Regular Rate, Rhythm. Negative for: Murmur Respiratory: Positive for: Normal Breath Sounds. Negative for: Crackles, Wheezing, Respiratory Distress Pulses-Dorsalis Pedis (L): 2+ Pulses-Dorsalis Pedis (R): 2+ Gastrointestinal/Abdominal: Positive for: Bowel Sounds, Soft. Negative for: Tenderness, Organomegaly, Guarding, Rebound Extremity: Positive for: Calf Tenderness, Other (left leg- 2.5 cm of ecchymosis near popliteal area with tenderness over ecchymosis as well as in the calf; rt leg: rt calf tenderness- no erythema or swelling; b/l calf circumference approx. 14.75cm) Neurological/Psych: Positive for: Awake, Alert, Gait (limbing) <Aubree Shahid - Last Filed: 08/19/18 15:44> - Laboratory Results Result Diagrams: 08/19/18 09:18 08/19/18 09:21 Lab Results: PT 12.1 Seconds (9.8-13.1) 08/19/18 09:18 INR 1.1 08/19/18 09:18 APTT 32.4 Seconds (25.6-37.1) 08/19/18 09:18 Total Bilirubin 0.6 mg/dl (0.2-1.3) 08/19/18 09:21 AST 43 U/L (14-36) H D 08/19/18 09:21 ALT 27 U/L (9-52) 08/19/18 09:21 Alkaline Phosphatase 102 U/L (38-126) 08/19/18 09:21 Total Protein 7.4 G/DL (6.3-8.2) 08/19/18 09:21 Albumin 4.3 g/dL (3.5-5.0) 08/19/18 09:21 Globulin 3.2 gm/dL (2.2-3.9) 08/19/18 09:21 Albumin/Globulin Ratio 1.4 (1.0-2.1) 08/19/18 09:21 <Lois Castillo - Last Filed: 08/19/18 15:07> - Laboratory Results Result Diagrams: 08/19/18 09:18 08/19/18 09:21 - ECG O2 Sat by Pulse Oximetry: 99 <Aubree Shahid - Last Filed: 08/19/18 15:44> - Laboratory Results Result Diagrams: 08/19/18 09:18 08/19/18 09:21 Lab Results: PT 12.1 Seconds (9.8-13.1) 08/19/18 09:18 INR 1.1 08/19/18 09:18 APTT 32.4 Seconds (25.6-37.1) 08/19/18 09:18 Total Bilirubin 0.6 mg/dl (0.2-1.3) 08/19/18 09:21 AST 43 U/L (14-36) H D 08/19/18 09:21 ALT 27 U/L (9-52) 08/19/18 09:21 Alkaline Phosphatase 102 U/L (38-126) 08/19/18 09:21 Total Protein 7.4 G/DL (6.3-8.2) 08/19/18 09:21 Albumin 4.3 g/dL (3.5-5.0) 08/19/18 09:21 Globulin 3.2 gm/dL (2.2-3.9) 08/19/18 09:21 Albumin/Globulin Ratio 1.4 (1.0-2.1) 08/19/18 09:21 <Ayaan De León III - Last Filed: 08/22/18 10:12> Disposition - Patient ED Disposition Is Patient to be Admitted: Transfer of Care - Disposition Disposition: Transfer of Care Disposition Time: 15:00 Patient Signed Over To: Ayaan De León III <Lois Castillo - Last Filed: 08/19/18 15:07> <Aubree Shahid - Last Filed: 08/19/18 15:44> <Ayaan De León III - Last Filed: 08/22/18 10:12> - Clinical Impression Clinical Impression: Bilateral calf pain, Anemia - Disposition Referrals: [facility] [Outside] Condition: STABLE Additional Instructions: Recommend repeat ultrasound in 5 days given multiple risk factors for DVT. If you have had a DVT in the past, discuss the need for hormonal therapy with your RECEP. Return to ER for any concern. Recommend compression socks which you can buy at a pharmacy or sports supply store. Keep legs elevated when able to. Instructions: Dependent Edema (DC) Forms: [email or web address] ([place])
[2018-08-19 09:44] LABS: ALB/GLOB RATIO 1.4 (1.0-2.1); ALBUMIN 4.3 g/dL (3.5-5.0); ALT/SGPT 27 U/L (9-52); AST/SGOT 43 U/L (14-36); BLOOD UREA NITROGEN 8 mg/dl (7-17); CALCIUM 9.7 mg/dL (8.4-10.2); GFR NON-AFRICAN AMERICAN > 60
[2018-08-19 09:56] LABS: INR 1.1; PROTHROMBIN TIME 12.1 Seconds (9.8-13.1)
[2018-08-19 09:57] LABS: PARTIAL THROMBOPLASTIN TIME 32.4 Seconds (25.6-37.1)
--- NOTE | 2018-08-19 15:10 | ED PDOC ---
- Laboratory Results Result Diagrams: 08/19/18 09:18 08/19/18 09:21 Lab Results: PT 12.1 Seconds (9.8-13.1) 08/19/18 09:18 INR 1.1 08/19/18 09:18 APTT 32.4 Seconds (25.6-37.1) 08/19/18 09:18 Total Bilirubin 0.6 mg/dl (0.2-1.3) 08/19/18 09:21 AST 43 U/L (14-36) H D 08/19/18 09:21 ALT 27 U/L (9-52) 08/19/18 09:21 Alkaline Phosphatase 102 U/L (38-126) 08/19/18 09:21 Total Protein 7.4 G/DL (6.3-8.2) 08/19/18 09:21 Albumin 4.3 g/dL (3.5-5.0) 08/19/18 09:21 Globulin 3.2 gm/dL (2.2-3.9) 08/19/18 09:21 Albumin/Globulin Ratio 1.4 (1.0-2.1) 08/19/18 09:21 - ECG O2 Sat by Pulse Oximetry: 100 (RA) Pulse Ox Interpretation: Normal Medical Decision Making Medical Decision Making: Time: 15:00 Patient care endorsed from Dr. Castillo to Dr. De León. Pt seen and examined w/ resident, Dr castillo also examined patient. US duplex was negative. Given high risk of prior DVT (?) and on hormonal therapy recommend repeat US duplex 5 days. HR normal and no chest pain or SOB on discharge. Scribe Attestation: Documented by Freida Goode, acting as a scribe for Ayaan De León III, DO. Provider Scribe Attestation: All medical record entries made by the Scribe were at my direction and personally dictated by me. I have reviewed the chart and agree that the record accurately reflects my personal performance of the history, physical exam, medical decision making, and the department course for this patient. I have also personally directed, reviewed, and agree with the discharge instructions and disposition. Disposition Counseled Patient/Family Regarding: Studies Performed, Diagnosis - Clinical Impression Clinical Impression: Bilateral calf pain, Anemia - POA Present On Arrival: None - Disposition Referrals: [facility] [Outside] Disposition: Routine/Home Disposition Time: 16:20 Condition: STABLE Additional Instructions: Recommend repeat ultrasound in 5 days given multiple risk factors for DVT. If you have had a DVT in the past, discuss the need for hormonal therapy with your CLERK SUPERVISOR. Return to ER for any concern. Recommend compression socks which you can buy at a pharmacy or sports supply store. Keep legs elevated when able to. Instructions: Dependent Edema (DC) Forms: [employer] ([place]an)
--- NOTE | 2018-08-19 15:20 | US ---
Date of service: 08/19/2018 PROCEDURE: Bilateral lower extremity venous duplex Doppler. HISTORY: b/l calf pain tenderness r/o b/l dvt COMPARISON: None available. TECHNIQUE: Bilateral common femoral, superficial femoral, popliteal and posterior tibial veins were evaluated. Flow was assessed with color Doppler, compressibility, assessment of phasic flow and augmentation response. FINDINGS: COMMON FEMORAL VEIN: Right CFV: Unremarkable. Left CFV: Unremarkable. SUPERFICIAL FEMORAL VEIN: Right SFV: Unremarkable. Left SFV: Unremarkable. POPLITEAL VEIN: Right Popliteal: Unremarkable. Left Popliteal: Unremarkable. POSTERIOR TIBIAL VEIN: Right PTV: Unremarkable. Left PTV: Unremarkable. OTHER FINDINGS: None. IMPRESSION: No evidence of deep venous thrombosis.
[2018-08-19 16:39] VITALS: BP 110/62; PULSE 72; TEMP 98.9
--- NOTE | 2018-08-20 09:06 | CARD ---
APPROVED REPORT Date of service: 08/19/2018 EKG Measurement Heart [id number] <Conclusion> Normal sinus rhythm with sinus arrhythmia Normal ECG
[2018-08-22 08:59] VITALS: O2SAT 100
== END 2018-08-19 16:38 | disposition home or self-care (01) ==
LOC: H.ER 07:54
DX: M79.669 Pain in unspecified lower leg (principal); D64.9 Anemia, unspecified; E03.9 Hypothyroidism, unspecified; E11.9 Type 2 diabetes mellitus without complications; Z86.718 Personal history of other venous thrombosis and embolism

== ENCOUNTER 2018-08-25 11:18 | Emergency (ER) | payer SELFPAY ==
[2018-08-25 11:28] VITALS: BMI 33.8
[2018-08-25 11:31] VITALS: RESP 18; TEMP 98.5; O2SAT 100
--- NOTE | 2018-08-25 12:50 | ED PDOC ---
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 states for the past 15 days she's had b/l leg pain. She was initially seen here 5 days ago for the same complaint and advised to return for repeat duplex lower leg vein since [place] Further states she's also experiences SOB without chest pain for 3 weeks that is present only when she walks up stairs and after she takes a shower. Currently without any SOB. Of note, pt. states she does take Provera as prescribed by her OBGYN who is aware of her previous DVT. Pain persists but has not worsened. Denies chest pain, hemoptysis, recent prolonged limb immobilization, recent surgery, trauma, numbness, tingling. Past Medical History Reviewed: Historical Data, Nursing Documentation, Vital Signs Vital Signs: Last Vital Signs Temp 98.5 F 08/25/18 11:29 Pulse 78 08/25/18 11:29 Resp 18 08/25/18 11:29 BP 120/74 08/25/18 11:29 Pulse Ox 100 08/25/18 11:29 - Medical History PMH: Anemia (iron), Diabetes, Gastritis, Hypothyroidism Denies: Chronic Kidney Disease - Family History Family History: States: No Known Family Hx - Immunization History Hx Tetanus Toxoid Vaccination: No Hx Influenza Vaccination: No Hx Pneumococcal Vaccination: No - Home Medications Home Medications: Ambulatory Orders Medication Instructions Recorded Levothyroxine [Synthroid] 1 tab PO DAILY 08/17/17 Ibuprofen [Motrin Tab] 600 mg PO Q6 06/20/18 Naproxen 375 mg PO Q8 PRN #21 tablet 07/09/18 - Allergies Allergies/Adverse Reactions: Allergies Allergy/AdvReac Type Severity Reaction Status Date / Time No Known Allergies Allergy Verified 08/25/18 12:05 Review of Systems ROS Statement: Except As Marked, All Systems Reviewed And Found Negative Musculoskeletal: Positive for: Leg Pain Physical Exam - Physical Exam Appears: Positive for: Well, Non-toxic, No Acute Distress Skin: Positive for: Normal Color, Warm. Negative for: Rash Eye Exam: Positive for: Normal appearance Cardiovascular/Chest: Positive for: Regular Rate, Rhythm. Negative for: Tachycardia Respiratory: Positive for: Normal Breath Sounds. Negative for: Accessory Muscle Use, Respiratory Distress Pulses-Dorsalis Pedis (L): 2+ Pulses-Dorsalis Pedis (R): 2+ Pulses-Femoral (L): 2+ Pulses-Femoral (R): 2+ Extremity: Positive for: Normal ROM, Other (negative alma's sign b/l). Negative for: Calf Tenderness (b/l or swelling) Neurological/Psych: Positive for: Awake, Oriented (x3) - ECG O2 Sat by Pulse Oximetry: 100 - Progress ED Course And Treament: Duplex b/l lower extremity vein: no DVT as per radiology report. Disposition - Clinical Impression Clinical Impression: Bilateral leg pain - Patient ED Disposition Is Patient to be Admitted: No - Disposition Disposition: Routine/Home Disposition Time: 14:40 Condition: STABLE Additional Instructions: FOLLOW UP WITH YOUR DOCTOR FOR FURTHER EVALUATION RETURN TO ED IMMEDIATELY IF SYMPTOMS WORSEN THOMAS RODRIGUEZ, thank you for letting us take care of you today. Your provider was Magdiel Craft MD and you were treated for ER FOLLOW UP. The emergency medical care you received today was directed at your acute symptoms. If you were prescribed any medication, please fill it and take as directed. It may take several days for your symptoms to resolve. Return to the Emergency Department if your symptoms worsen, do not improve, or if you have any other problems. Please contact your doctor or call one of the physicians/clinics you have been referred to that are listed on the Patient Visit Information form that is included in your discharge packet. Bring any paperwork you were given at discharge with you along with any medications you are taking to your follow up visit. Our treatment cannot replace ongoing medical care by a primary care provider outside of the emergency department. Thank you for allowing the [facility] team to be part of your care today. If you had an X-Ray or CT scan: A Radiologist will review the ED reading if any change in treatment is needed we will contact you. If you had a blood, urine, or wound culture: It will take several days for the results, if any change in treatment is needed we will contact you. If you had an STI test: It will take 48 hours for the results. Please call after 1 week if you have not heard back. Instructions: Dependent Edema (DC) Print Language: SLOVENIAN
--- NOTE | 2018-08-25 15:36 | US ---
Date of service: 08/25/2018 PROCEDURE: BILATERAL LOWER EXTREMITY VENOUS DOPPLER ULTRASOUND HISTORY: pain COMPARISON: Bilateral lower extremity venous Doppler ultrasound 08/19/2018. TECHNIQUE: Sonographic interrogation using standard and duplex doppler technique was utilized in evaluation of the bilateral lower extremity major deep veins. FINDINGS: Good compressibility, augmentation as well as normal phasic venous blood flow and morphology are identified at the bilateral common and superficial femoral as well as popliteal veins. The bilateral posterior tibial veins are patent. The saphenofemoral junctions appear unremarkable bilaterally. IMPRESSION: No sonographic evidence to suggest deep venous thrombosis bilaterally. No significant interval change compared to 08/03/2018.
[2018-08-25 16:01] VITALS: BP 122/81; PULSE 83
== END 2018-08-25 15:38 | disposition home or self-care (01) ==
LOC: H.ER 11:18
DX: M79.609 Pain in unspecified limb (principal); E11.9 Type 2 diabetes mellitus without complications; E03.9 Hypothyroidism, unspecified